=== PATIENT | male | born 1985 | race African-American/Black ===

== ENCOUNTER 2019-08-11 07:14 | Emergency (ER) | payer OTHER ==
[~2019-08-11] VITALS: Ht 175.3 cm; Wt 79.0 kg
[2019-08-11 07:35] VITALS: BP 123/82
== END 2019-08-11 09:02 | disposition home or self-care (01) ==
LOC: ER 07:53
DX: H61.21 Impacted cerumen, right ear (principal); F17.200 Nicotine dependence, unspecified, uncomplicated; Z88.6 Allergy status to analgesic agent
CPT/HCPCS: 99281